=== PATIENT | female | born 1990 | race Two or more races ===

== ENCOUNTER 2021-07-18 00:34 | Emergency (ER) | payer MEDICAID, OTHER ==
[~2021-07-18] VITALS: Ht 154.9 cm; Wt 44.0 kg
[2021-07-18 00:34] VITALS: BP 127/95
[2021-07-18 03:45] LABS: Urine Bacteria NONE SEEN /hpf (None Seen); Urine Blood Negative /uL (Negative); Urine Specific Gravity 1.018 (1.001-1.035); Urine WBC 1 /hpf (0 - 5)
== END 2021-07-18 06:31 | disposition left against medical advice (07) ==
LOC: ER 00:34
DX: M54.50 Low back pain, unspecified (principal); Z53.21 Procedure and treatment not carried out due to patient leaving prior to being seen by health care provider
CPT/HCPCS: 81001